=== PATIENT | male | born 1955 | race Caucasian/White ===

== ENCOUNTER 2024-12-04 06:58 | Emergency (ER) | payer OTHER, SELFPAY ==
[2024-12-04 06:59] VITALS: BP 140/86; PULSE 76; RESP 18; TEMP 36.4; O2SAT 95; BMI 26.3
--- NOTE | 2024-12-04 07:10 | EKG12_ITS ---
Test Reason : DIZZINESS/WEAKNESS Blood Pressure : */* mmHG Vent. Rate : 76 BPM Atrial Rate : 76 BPM P-R Int : 174 ms QRS Dur : 98 ms QT Int : 384 ms P-R-T Axes : 44 -73 13 degrees QTcB Int : 432 ms Normal sinus rhythm Left axis deviation Abnormal ECG Confirmed by Daniel Burrell ([id number]), proposal editor NEERAJ HOFFMAN ([id number]) on 12/07/2024 9:50:30 AM Referred By: [place] Confirmed By: Daniel Burrell
--- NOTE | 2024-12-04 07:10 | CT_ITS ---
EXAM: Noncontrast CT of the brain. CLINICAL HISTORY: Bilateral arm/leg paresthesias COMPARISON: None available TECHNIQUE: Contiguous unenhanced axial CT images were obtained through the brain. Sagittal and coronal reformats were created. CT dose modulation was performed to obtain diagnostic images at lowest achievable dose. FINDINGS: Bones of the calvarium are intact. Paranasal sinuses and mastoid air cells are clear. Prominence of the cortical sulci and ventricular system, compatible with mild brain parenchymal atrophy. No extra- axial fluid collection or midline shift. The echeverria-white matter differentiation is maintained. Ventricles normal in configuration. No acute intracranial hemorrhage. Basilar cisterns are clear. No acute abnormality of the posterior fossa. CT/Brain/Head without Contrast IMPRESSION: Mild brain parenchymal atrophy. No acute intracranial abnormality is demonstra michelle. If there are persistent symptoms or clinical concern, further evaluation with MRI may be considered. Reading Location: [facility]
--- NOTE | 2024-12-04 07:10 | CT_ITS ---
PROCEDURE: Noncontrast CT of the cervical spine. REASON FOR EXAM: Arm paresthesias TECHNIQUE: Contiguous unenhanced axial CT images were obtained through the cervical spine. Sagittal and coronal reformats were created. COMPARISON: None. FINDINGS: The bones are osteopenic. Included portions of the skull base and craniocervical junction are intact. Chronic appearing height loss of C5 through C7. No acute fracture or focal subluxation of the cervical spine is demonstrated. Moderate multilevel degenerative disc and facet disease of the cervical spine. Central spinal canal detail is limited on this study. Included upper lungs and central airway are clear. The ring of C1 is intact. Posterior disc osteophyte complexes at C3-4, C5-6, and C6-7 cause mild central spinal canal narrowing. There is multilevel neural foraminal narrowing in the cervical spine. CT/Spine Cervical without Contras IMPRESSION: Osteopenia. No acute bony abnormality of the cervical spine. Chronic appearin g mild height loss of C5-C7 Moderate multilevel degenerative disc and facet disease in the cervical spine. Posterior disc osteophyte complexes at C3-4, C5-6, and C6-7 cause mild central spinal canal narrowing. Central canal detail is limited. There is multilevel neural foraminal narrowing in the cervical spine. If there are persistent symptoms or clinical concern, MRI evaluation may be considered. One or more dose reduction techniques were used (e.g., Automated exposure contr ol, adjustment of the mA and/or kV according to patient size, use of iterative reconstruction technique). Reading Location: [facility]
--- NOTE | 2024-12-04 07:10 | RAD_ITS ---
PROCEDURE: Portable upright chest radiograph, one view REASON FOR EXAM: Hypertension TECHNIQUE: Portable upright chest radiograph was obtained. COMPARISON: None. FINDINGS: The cardiomediastinal silhouette is within normal limits. Thoracic aorta is tortuous. Monitoring leads overlie the chest. Bones are osteopenic, grossly intact. No pneumothorax, focal airspace consolidation, or pleural effusion. RAD/Chest 1 View (Portable) IMPRESSION: No acute cardiopulmonary process is demonstrated. Reading Location: [facility]
--- NOTE | 2024-12-04 07:11 | EX.ED.DYSGE1 ---
HPI History of Present Illness Chief Complaint: Numb/Ting Informant: patient, spouse/S.O. and family Narrative Narrative: 68-year-old male presenting to the emergency room with bilateral arm and leg paresthesias. Patient states that for about a month and a half he has had tingling/numbness of the bilateral fingertips and hands. Sometimes it goes up to the elbow area. He states that he intermittently gets dizziness. This morning he developed tingling/numbness in the legs up to about the level of the knee. He has had the symptoms come and go recently as well but seem more pronounced this morning. Family states that it is he seemed off balance. He denies any bowel or bladder symptoms. He notes some slight weight gain but no weight loss. She denies headache neck or back pain. Intermittent blurry vision at times. He mentioned the symptoms to his primary care doctor has him scheduled for an MRI. She has a history of hypertension is on hydrochlorothiazide as well as potassium. He takes an aspirin a day. [facility] Medical History Hip replacement planned HTN (hypertension) Home Medications ?Medication ?Instructions ?Recorded ?Last Taken ?Type aspirin 81 mg chewable tablet 1 tab PO DAILY 12/04/24 12/03/24 History hydrochlorothiazide 50 mg tablet 50 mg PO DAILY 12/04/24 12/03/24 History potassium chloride 20 mEq 20 meq PO DAILY 12/04/24 12/03/24 History tablet,extended release(part/cryst) Allergy/AdvReac Type Severity Reaction Status Date / Time No Known Allergies Allergy Verified 12/04/24 06:59 Social History Smoking Status: Never smoker [facility] ED Constitutional Constitutional ED: Denies chills, fever(s) or weight loss Eyes Eyes: Reports blurry vision bilateral (Intermittent); Denies change in vision or diplopia ENT ENT ED: Denies ear pain, rhinorrhea or sore throat Cardiovascular Cardiovascular: Denies chest pain, orthopnea, palpitations or racing heartbeat Respiratory/Chest Respiratory/Chest: Denies cough, dyspnea or orthopnea Gastrointestinal Gastrointestinal: Denies abdominal pain, diarrhea, nausea or vomiting Genitourinary Genitourinary ED: Denies dysuria, hematuria or urinary frequency Musculoskeletal Musculoskeletal: Denies arthralgias, myalgias or neck pain Integumentary Denies abscess, Abrasions or rash Neurologic Neurologic: Reports paresthesias RUE, RLE, LUE and LLE; Denies headache(s) or weakness Psychiatric Psychiatric: Denies anxiety, depression, suicidal ideation or suicidal thoughts Endocrine Endocrinology: Denies polydipsia, polyphagia or polyuria Allergic/Immunologic Allergic/Immunologic ED: Denies mouth swelling, tongue swelling or urticaria EXAM Physical Exam Const Vital Signs: 12/04/24 06:59 12/04/24 08:00 12/04/24 08:44 Temperature 97.6 F L 98.7 F Temperature Source Oral Pulse Rate 76 78 64 Respiratory Rate 18 14 16 Blood Pressure 140/86 H 128/81 H 134/78 H Blood Pressure Mean 104 96 96 Pulse Ox 95 98 99 Oxygen Delivery Method Room Air Room Air Positive well nourished and well developed General Appearance ED: well developed and NAD HEENT Reports normocephalic, head/scalp atraumatic and moist mucous membranes Eyes PERRL and EOMs intact bilaterally Neck no lymphadenopathy, supple and no JVD Resp normal respiratory effort and clear to auscultation bilaterally Cardio regular rate, regular rhythm and no murmurs GI normal to inspection, nondistended, normoactive bowel sounds and non-tender Palpation: soft Back/Spine no CVA tenderness and normal ROM Extremity normal to inspection General Extremety ED: Negative for edema General Extremity: Negative for edema Neuro oriented x3 and CN's II-XII intact bilaterally Neuro Narrative: Patient notes decrease sensation of the bilateral lower legs up to near the tibial tuberosity. He notes numbness of his fingertips bilaterally. Sensorium / Orientation: alert Motor Exam: strength 5/5 throughout Psych mental status grossly normal Mood & Affect: Negative for depressed or tearful Skin no rashes or lesions noted and no wounds MDM MDM MDM Narrative Medical decision making narrative: Differential diagnosis includes but not limited to stroke spinal stenosis malignancy normal pressure hydrocephalus multiple sclerosis electrolyte abnormalities hypertension PRESS. Basic blood work including TSH was normal. Urinalysis no overt infection. EKG is a normal sinus rhythm. CT of the brain showed no acute findings. My independent interpretation of the chest x-ray is no acute process. CT of the cervical spine showed multilevel degenerative changes with central canal narrowing. I believe the patient can be discharged home and obtain MRI as follow-up. I do not see evidence of foot drop or acute muscle weakness. I recommend to the family that they call their doctor and make sure that they have an MRI of the cervical spine. I reviewed the above results with the patient and his family. They are comfortable with outpatient follow-up and they understand return instructions History & Record Review Discussion w/independent historian: Patient and Family Lab Data Attestation: I reviewed the patient's lab results. Labs: Laboratory Results - last 24 hr 12/04/24 12/04/24 07:13 08:22 WBC 5.4 RBC 4.70 Hgb 13.7 Hct 41.4 MCV 88.1 MCH 29.1 MCHC 33.1 RDW Std Deviation 44.1 H RDW Coeff of Rosalie 13.5 Plt Count 265 MPV 8.9 Immature Gran % (Auto) 0.200 Neut % (Auto) 59.7 Lymph % (Auto) 26.7 [place] % (Auto) 10.3 H Eos % (Auto) 2.4 Baso % (Auto) 0.7 Absolute Neuts (auto) 3.2 Absolute Lymphs (auto) 1.43 Nucleated RBC % 0 Sodium 141 Potassium 3.9 Chloride 107 Carbon Dioxide 30.0 Anion Gap 4 L BUN 16 Creatinine 0.86 Estim Creat Clear Calc 76.86 Est GFR (MDRD) Af Amer 113 Est GFR (MDRD) Non-Af 94 BUN/Creatinine Ratio 18.6 Glucose 85 Calcium 9.3 Total Bilirubin 0.80 Direct Bilirubin 0.20 AST 17 ALT 31 Alkaline Phosphatase 111 Total Protein 7.4 Albumin 3.6 Globulin 3.8 TSH 3.360 Urine Color Yellow Urine Clarity Clear Urine pH 6.5 Ur Specific [place] 1.015 Urine Protein 15 H Urine Glucose (UA) Normal Urine Ketones Negative Urine Occult Blood Negative Urine Nitrite Negative Urine Bilirubin Negative Urine Urobilinogen Normal Ur Leukocyte Esterase 25 H Urine RBC 0 SEEN Urine WBC 0 SEEN Ur Squamous Epith Cells 0 SEEN Urine Bacteria 0 SEEN Urine Mucus 1+ Radiography Diagnostic Testing: Clinical Impression(s) from Imaging Studies Brain CT 12/04/24 07:10 IMPRESSION: Mild brain parenchymal atrophy. No acute intracranial abnormality is demonstrated. If there are persistent symptoms or clinical concern, further evaluation with MRI may be considered. Reading Location: [facility] Cervical Spine CT 12/04/24 07:10 IMPRESSION: Osteopenia. No acute bony abnormality of the cervical spine. Chronic appearing mild height loss of C5-C7 Moderate multilevel degenerative disc and facet disease in the cervical spine. Posterior disc osteophyte complexes at C3-4, C5-6, and C6-7 cause mild central spinal canal narrowing. Central canal detail is limited. There is multilevel neural foraminal narrowing in the cervical spine. If there are persistent symptoms or clinical concern, MRI evaluation may be considered. One or more dose reduction techniques were used (e.g., Automated exposure control, adjustment of the mA and/or kV according to patient size, use of iterative reconstruction technique). Reading Location: [facility] Chest X-Ray 12/04/24 07:10 IMPRESSION: No acute cardiopulmonary process is demonstrated. Reading Location: [facility] EKG Initial EKG: Attestation: I personally reviewed and interpreted this EKG as follows: Comments: Normal sinus rhythm ventricular rate of 76 bpm Discharge Plan Triage Chief Complaint: Numb/Ting ED Provider: Marcelo Lazcano Dx/Rx/DC Orders Clinical Impression: Paresthesias, Degenerative joint disease of cervical spine, Cervical spinal stenosis Instructions: ED Paraesthesias Prescriptions: No Action potassium chloride 20 mEq tablet,ER particles/crystals 20 meq PO DAILY aspirin 81 mg tablet,chewable 1 tab PO DAILY hydrochlorothiazide 50 mg tablet 50 mg PO DAILY Primary Care Provider: Ashkan Gonzales Referrals: Ashkan Gonzales DO [Primary Care Provider] - As soon as possible Activity Restrictions/Additional Instructions: Please follow-up with your primary care doctor. I would call their office and make sure that as part of your MRI evaluation they are including your cervical spine. Today's imaging suggest some spinal stenosis. Print Language: Mauritanian Disposition Disposition: Home, Self Care Discharge Date/Time: 12/04/24 08:45
[2024-12-04 07:19] LABS: Absolute Lymphocyte Count 1.43 X10^3/uL (0.83-4.51); Absolute Neutrophil Count 3.2 X10^3/uL (2.0-7.7); Basophil# 0.04 X10^3/uL; Basophil% 0.7 % (0-1); Eosinophil# 0.13 X10^3/uL; Eosinophils% 2.4 % (0-5); Hematocrit 41.4 % (40-54); Hemoglobin 13.7 g/dL (13.0-16.5); Lymphocyte # 1.43 X10^3/ul (0.83-4.51); Lymphocyte % 26.7 % (19-41); Mean Corp Hgb Conc 33.1 g/dL (32-36); Mean Corpuscular Hgb 29.1 pg (27.0-32.0); Mean Corpuscular Volume 88.1 fL (80-94); Mean Platelet Vol. 8.9 fl (6.2-12.0); Monocyte# 0.55 X10^3/uL; Monocyte% 10.3 % (0-10); NRBC Flagged by Analyzer 0 % (0-5); Neutrophil % 59.7 % (47-70); Platelet Count 265 K/mm3 (150-450); RBC Distribution Width CV 13.5 % (11.6-14.6); RBC Distribution Width SD 44.1 fl (35.1-43.9); White Blood Count 5.4 K/mm3 (4.4-11.0)
[2024-12-04 07:47] LABS: AST(SGOT) 17 U/L (15-37); Alanine Aminotransfer ALT/SGPT 31 U/L (16-61); Albumin, Serum 3.6 g/dL (3.2-5.0); Alkaline Phosphatase 111 U/L (45-117); Anion Gap 4 (5-15); BUN 16 mg/dL (7-18); BUN/Creat Ratio 18.6 RATIO (10-20); Calcium,Total 9.3 mg/dL (8.5-10.1); Chloride 107 mmol/L (98-107); Creatinine, Serum 0.86 mg/dL (0.70-1.30); EST Glomerular Filtration Rate 94 mL/min (>60); Est Glom Filt Rate - Afr Amer 113 mL/min (>60); Estimated Creatinine Clearance 76.86 ml/min; Globulin 3.8 g/dL (2.2-4.2); Glucose 85 mg/dL (74-106); Potassium 3.9 mmol/L (3.5-5.1); Protein, Total 7.4 g/dL (6.4-8.2); Sodium Level 141 mmol/L (136-145)
[2024-12-04 08:00] VITALS: BP 128/81; PULSE 78; RESP 14; O2SAT 98
[2024-12-04 08:28] LABS: Bacteria 0 SEEN /hpf (None Seen); Squamous Epithelial Cells - UA 0 SEEN /hpf (0-5); White Blood Cells 0 SEEN /hpf (0-5)
[2024-12-04 08:30] LABS: Color, Urine Yellow (Yellow); Glucose, Dipstick Normal (Normal); Ketone-Dipstick Negative (Negative); Leukocyte Esterase-Dipstick 25 /ul (Negative); Nitrite-Dipstick Negative (Negative); Occult Blood-Urine Negative /ul (Negative); Protein-Dipstick 15 mg/dl (Negative); Specific Gravity, Urine 1.015 (1.002-1.030); Urine Bilirubin Dipstick Negative (Negative); Urine Clarity Clear (Clear); Urine Urobilinogen Normal (Normal); Urine pH 6.5 (5.0 - 8.0)
[2024-12-04 08:43] LABS: Mucous, Urine 1+ /hpf (<or=2+); Red Blood Cells-Urine 0 SEEN /hpf (0-5)
[2024-12-04 08:44] VITALS: BP 134/78; PULSE 64; RESP 16; TEMP 37.1; O2SAT 99
== END 2024-12-04 08:45 | disposition home or self-care (01) ==
LOC: ED 07:45
PROVIDERS: Emergency Provider Emergency Medicine; PCP Family Medicine; Visit Provider Emergency Medicine
DX: R20.2 Paresthesia of skin (principal); M47.812 Spondylosis without myelopathy or radiculopathy, cervical region; M48.02 Spinal stenosis, cervical region; Z79.82 Long term (current) use of aspirin
CPT/HCPCS: 70450; 71045; 72125; 80048; 80076; 81001; 84443; 85025; 93005; 99284; A4216